=== PATIENT | female | born 1980 | race African-American/Black ===

== ENCOUNTER 2023-08-29 04:13 | Day surgery (SDC) | payer OTHER ==
[2023-08-22 17:03] VITALS: BMI 33.5
[2023-08-29] MEDS ORDERED: LIDOCAINE HCL/PF 1% SDV 5ML VIAL ONE (07:05)
[2023-08-29 07:52] VITALS: RESP 18
[2023-08-29] MEDS ORDERED: ACETAMINOPHEN 500 MG TABLET (FP) PO PRN (08:43)
[2023-08-29] MEDS: LIDOCAINE 1% P/F 10 MG/ML VIAL INF ONE ×3 (09:28)
[2023-08-29 09:59] VITALS: BP 130/74; PULSE 86; TEMP 98
== END 2023-08-29 10:57 | disposition home or self-care (01) ==
LOC: JASU-SURG 04:13
PROVIDERS: ATTEND Pain Medicine Pain Medicine
PROC: 01HY3MZ Insertion of Neurostimulator Lead into Peripheral Nerve, Percutaneous Approach (ICD-10-PCS; principal; 2023-08-29 09:45)
DX: G89.4 Chronic pain syndrome (principal)
CPT/HCPCS: 64555; C1778; 81025

== ENCOUNTER 2024-01-13 18:52 | Emergency (ER) | payer OTHER ==
[2024-01-13 18:59] VITALS: BP 141/87; PULSE 88; RESP 18; TEMP 98.2; BMI 34.4
[2024-01-13] MEDS ORDERED: KETOROLAC TROMETHAMINE 30 MG/1 ML VIAL ONE (19:26)
[2024-01-13] MEDS ORDERED: LIDOCAINE 5% TOPICAL PATCH ONE (19:26)
[2024-01-13] MEDS: LIDOCAINE 5% TOPICAL PATCH TP ONE (19:34)
[2024-01-13] MEDS: KETOROLAC TROMETHAMINE 30 MG/1 ML VIAL IM ONE (19:34)
[2024-01-13] MEDS ORDERED: LIDOCAINE PATCH REMOVAL MC SCH (22:00)
== END 2024-01-13 19:56 | disposition home or self-care (01) ==
LOC: JERFT 18:52 → JER 18:52 → JERFT 19:56
PROC: 3E0233Z Introduction of Anti-inflammatory into Muscle, Percutaneous Approach (ICD-10-PCS; principal; 2024-01-13)
DX: M54.16 Radiculopathy, lumbar region (principal); R20.2 Paresthesia of skin
CPT/HCPCS: 96372; 99284-25